=== PATIENT | female | born 1950 | race Caucasian/White ===

== ENCOUNTER 2016-10-22 07:56 | Day surgery (SDC) | payer MEDICARE, OTHER ==
--- NOTE | ~2016-10-22 | EGD ---
EGD REPORT [facility] [address] [place] [place] [address] NAME: DALLAS GOODWIN : [birth year] STATUS : REG [facility]#: [id number] AGE: 66 ADM/REG DATE : 10/22/16 MR#: [id number] REPORT SERV DATE: 10/22/16 DICTATED BY: EDGAR RIVAS DATE: 10/22/16 REPORT STATUS : Draft [facility]ANS[facility]IB[facility] BY: [facility] DATE: 10/22/16 Endoscopy Center Patient Name: Dallas Goodwin Date of : 1950 Attending MD: EDGAR RIVAS MD Procedure Date No Time: 10/22/2016 Procedure: Colonoscopy Indications: High risk colon cancer surveillance: Personal history of colonic polyps Referring MD: ADELE MELENDEZ Medicines: as per anesthesia Complications: No immediate complications. Procedure: Pre-Anesthesia Assessment: - ASA Grade Assessment: II - A patient with mild systemic disease. After I obtained informed consent, the scope was passed under direct vision. Throughout the procedure, the patient's blood pressure, pulse, and oxygen saturations were monitored continuously. The PCF [id number] was introduced through the anus and advanced to the cecum, identified by appendiceal orifice and ileocecal valve. The colonoscopy was somewhat difficult due to significant looping and a tortuous colon. The patient tolerated the procedure. The quality of the bowel preparation was adequate to identify polyps. Findings: The perianal and digital rectal examinations were normal. A few small and large-mouthed diverticula were found in the descending colon. Impression: - Diverticulosis in the descending colon. Recommendation: - Repeat colonoscopy in 5 years for surveillance. Procedure Code(s): --- Professional --- 21710, Colonoscopy, flexible, proximal to splenic flexure; diagnostic, with or without collection of specimen(s) by brushing or washing, with or without colon decompression (separate procedure) Diagnosis Code(s): --- Professional --- K57.30, Diverticulosis of large intestine without perforation or abscess without bleeding Z86.010, Personal history of colonic polyps EGD REPORT [facility] [address] [place] [address] NAME: DALLAS GOODWIN : [birth year] STATUS : REG [facility] PAT#: [id number] AGE: 66 ADM/REG DATE : 10/22/16 MR#: [id number] REPORT SERV DATE: 10/22/16 DICTATED BY: EDGAR RIVAS. DATE: 10/22/16 REPORT STATUS : Draft TRANSCRIBED BY: [employer] DATE: 10/22/16 CPT copyright 2013 [employer]. All rights reserved. The codes documented in this report are preliminary and upon belt puncher review may be revised to meet current compliance requirements. EDGAR RIVAS MD 10/22/2016 10:44 AM This report has been signed electronically. Number of Addenda: 0 Note Initiated On: 10/22/2016 10:19 AM Scope Withdrawal Time 0 hours 7 minutes 51 seconds [address] [id number]
[~2016-10-22 07:56] MED LIST: CALCIUM PO; CYANO1000T PO; FISH OIL PO; TRAZ50 PO; VITAMIN D31000 UNIT PO
== END 2016-10-22 23:59 | disposition home or self-care (01) ==
LOC: DMU 07:56
PROVIDERS: Internal Medicine Gastroenterology
PROC: 0DJD8ZZ Inspection of Lower Intestinal Tract, Via Natural or Artificial Opening Endoscopic (ICD-10-PCS; principal; 2016-10-22 09:30)
DX: Z12.11 Encounter for screening for malignant neoplasm of colon (principal); K57.30 Diverticulosis of large intestine without perforation or abscess without bleeding; Z86.010 Personal history of colon polyps; Z79.899 Other long term (current) drug therapy; Z98.890 Other specified postprocedural states